=== PATIENT | female | born 1970 | race Caucasian/White ===

== ENCOUNTER 2018-03-08 12:57 | Outpatient (CLI) | payer OTHER ==
--- NOTE | 2018-03-08 16:24 | MMO ---
BILATERAL SCREENING MAMMOGRAMS: Date: 03/08/18 HISTORY: Annual screening mammography. This patient's mammogram was interpreted with the assistance of computer-aided detection. COMPARISON: 03/14/16, 08/22/14, and 07/29/11. FINDINGS: There is a heterogeneously dense parenchymal pattern, which may lower the sensitivity of mammography. There are stable calcifications again seen in each breast. There is an isodense round mass with partially obscured margins seen within the upper outer right burak ast measuring 1.2 cm, not definitively visualized on prior exams. No additional dominant mass or susp icious grouping of microcalcifications are seen in either breast. However, there is a suggested area of architectural distortion within the outer right breast, likely attributable to superimposition of structures. This was appears to be present on prior exams; although, slightly greater increased densi ty is present in this region on the current study. IMPRESSION: BIRADS 0: Incomplete: Need Additional Imaging Evaluation and/or Prior Mammograms for Comparison Spot magnification, compression, CC, and MLO views of right breast, in addition to 90 degree mediolat eral view recommended for further evaluation of the mass in the upper outer right breast and question able area of architectural distortion in the outer right breast only appreciated on the CC projection . Ultrasound examination should also be scheduled if warranted. The facility will notify patient of need for additional imaging services. POS: TAYLOR
== END 2018-03-08 12:58 | disposition home or self-care (01) ==
LOC: SCSMAMMO 12:57
PROVIDERS: ATTEND Family Medicine
DX: Z12.31 Encounter for screening mammogram for malignant neoplasm of breast (principal)
CPT/HCPCS: 77067

== ENCOUNTER 2018-03-19 13:00 | Outpatient (CLI) | payer OTHER ==
--- NOTE | 2018-03-19 17:55 | ULT ---
RIGHT BREAST DIAGNOSTIC ULTRASOUND: Date; 03/19/18 INDICATION: Evaluate upper outer right breast for an isodense rounded mass seen on the patient's screening evalua tion, but appears to have pressed out on the diagnostic right breast mammogram. An additional area of architectural distortion is seen within the right breast 11: position, middle depth. FINDINGS: Within the right breast 11:00 position, 4.0 cm from the nipple, is an area of spiculated increased de nsity. Within the area of increased spiculated echogenicity is a 5.0 mm hypoechoic mass. No suspicious abnormality is seen within the right breast 10:00 position, posterior depth, which lolis esponds to the isodense mass seen on the right breast mammogram that did not persist with additional mammographic images. This is likely related to superimposed breast tissue. Incidental note is made of a 5.0 mm hypodense mass within the right breast 11:30 position, 2.0 cm fro m the nipple. On my evaluation, there was a hilar notch related to this lesion, most consistent with a small lymph node. IMPRESSION: 1. BIRADS Category 4 - suspicious abnormality. Recommend ultrasound guided core biopsy of the area o f architectural distortion right breast, 11:00 position, 4.0 cm from the nipple. This architectural d istortion was likely present on comparison mammograms from 2015, but is much more conspicuous on the current examination paired with the presence of a hypoechoic mass. Malignancy is not excluded. Other differential considerations include entities such as prior trauma and/or potentially radial scar. 2. No suspicious sonographic abnormality seen within the right breast 10:00 position corresponding t o the region of isodense mass-like appearance in the upper outer aspect of the right breast on the sc reening mammogram. This region did not persist with additional mammographic views on today's evaluati on and likely superimposed breast tissue. 3. Incidental lymph node seen within the breast, 11:30 position, 2.0 cm from the nipple. Patient was counseled on the findings prior to leaving the breast center. Findings were called to Dr. Barbosa at approximately 1415 hours on 03/19/18. POS: OFF
== END 2018-03-19 13:01 | disposition home or self-care (01) ==
LOC: BICULT 13:00
PROVIDERS: ATTEND Family Medicine
DX: N63.10 Unspecified lump in the right breast, unspecified quadrant (principal)
CPT/HCPCS: G0279

== ENCOUNTER 2018-03-29 13:22 | Outpatient (CLI) | payer OTHER ==
--- NOTE | 2018-03-29 15:29 | ULT ---
ULTRASOUND GUIDED RIGHT BREAST BIOPSY: Date: 03/29/18 PROVIDED CLINICAL HISTORY: Right breast mass. FINDINGS: Limited sonographic interrogation was performed of the right breast, reidentifying the right breast m ass and associated shadowing. Informed consent was obtained from the patient. The skin overlying the mass was prepped and draped in the usual sterile manner. Soft tissues were infiltrated with 1% buffer ed lidocaine. A small skin incision was made. Under continuous sonographic guidance, a 14 gauge biops y device was advanced adjacent to a lesion and multiple core samples obtained. Subsequently, sonograp hic guidance was utilized to place a biopsy site marker adjacent to the lesion. [place] were withdraw n and hemostasis achieved. No immediate complications. Post biopsy mammograms demonstrate appropriate clip deployment. No immediate complications. IMPRESSION: Technically successful right breast ultrasound guided biopsy. Correlate with histology results to fol low. POS: OFF
== END 2018-03-29 13:23 | disposition home or self-care (01) ==
LOC: BICMAMMO 13:22
PROVIDERS: ATTEND Family Medicine
DX: N63.10 Unspecified lump in the right breast, unspecified quadrant (principal); Z98.890 Other specified postprocedural states
CPT/HCPCS: 19083

== ENCOUNTER → 2018-03-29 | Day surgery (SDC) | payer OTHER | LOC: BICULT 13:43 | PROVIDERS: ATTEND Family Medicine | PROC: 0HBT3ZX Excision of Right Breast, Percutaneous Approach, Diagnostic (ICD-10-PCS; principal; 2018-03-29) | DX: N60.91 Unspecified benign mammary dysplasia of right breast (principal) | CPT/HCPCS: 88305; 88341; 88342 ==

== ENCOUNTER 2018-05-03 05:39 | Outpatient (CLI) | payer OTHER ==
[2018-05-03 09:38] LABS: #Basophils 0.1 thou/uL (0.0-0.2); #Eosinphils 0.2 thou/uL (0.0-0.7); #Lymphocytes 3.8 thou/uL (1.20-3.40); #Monocytes 0.6 thou/uL (0.11-0.59); #Neutrophils 4.7 thou/uL (1.40-6.50); %Eosinophils 2.5 % (0.0-10.0); %Lymphocytes 40.3 % (21.0-51.0); %Neutrophils 50.2 % (42.0-75.0); Hemoglobin 13.1 g/dL (12.0-16.0); Mean Corpuscular HGB CONC 34.6 g/dL (32.0-36.0); Mean Corpuscular Hemoglobin 28.7 pg (27.0-31.0); Mean Corpuscular Volume 82.9 fL (78.0-98.0); Mean Platelet Volume 9.4 fL (7.4-10.4); Platelet Count 218 thou/uL (130-400); RBC Distribution Width 12.3 % (11.5-14.5); Red Blood Cell (RBC) Count 4.55 mill/uL (4.20-5.40); White Blood Cell (WBC) Count 9.3 thou/uL (4.8-10.8)
[2018-05-03 09:57] LABS: Anion Gap 12 mmol/L (10-20); BUN (Urea Nitrogen) 15 mg/dL (7.0-18.7); Calc. Creatinine Clearance 0 mL/min (70-130); Calcium 9.3 mg/dL (7.8-10.44); Carbon Dioxide 23 mmol/L (22-29); Chloride 106 mmol/L (98-107); Estimated GFR-MDRD 82; Glucose 126 mg/dL (70-105); Potassium 3.9 mmol/L (3.5-5.1); Sodium 137 mmol/L (136-145)
== END 2018-05-03 05:40 | disposition home or self-care (01) ==
LOC: LABBT 05:39
PROVIDERS: ATTEND Surgery
DX: Z01.812 Encounter for preprocedural laboratory examination (principal); N63.10 Unspecified lump in the right breast, unspecified quadrant
CPT/HCPCS: 80048; 85025

== ENCOUNTER 2018-05-04 05:57 | Day surgery (SDC) | payer OTHER ==
[2018-05-04] MEDS ORDERED: Midazolam HCl 2 mg/2 ml Vial ONE (07:04)
[2018-05-04] MEDS ORDERED: Fentanyl 100 MCG/2 ML VIAL ONE (07:04)
[2018-05-04] MEDS ORDERED: Bupivacaine/Epinephrine 0.25% 30 ML VIAL ONE (07:41)
--- NOTE | 2018-05-04 09:21 | MMO ---
SPECIMEN RADIOGRAPH: Date: 05/04/18 Needle localization was not performed by the radiology department. There is a single specimen radiogr aph submitted, which demonstrates a surgical specimen. Results conveyed to Dr. Ray on 05/04/18 at 0909 hours. CODE CR. POS: SJ
[2018-05-04] MEDS ORDERED: Ondansetron PF 4 MG/2 ML Vial ONE (12:14)
[2018-05-04] MEDS ORDERED: PROPOFOL 200 MG/20 ML VIAL ONE (12:14)
--- NOTE | 2018-05-11 16:18 | PDOC.OP ---
Operative Note - Operative Note Operative Note: PROCEDURE: Ultrasound-guided needle localization and excision of right breast mass. DATE OF PROCEDURE: 05/04/2018 SURGEON: Farooq Ray M.D. PREOPERATIVE DIAGNOSES: Right breast mass with atypia on core needle biopsy. POSTOPERATIVE DIAGNOSIS: Right breast mass with atypia on core needle biopsy. HISTORY: Patient with suspicious appearing right breast mass with atypia seen on core needle biopsy. Excisional biopsy was recommended due to risk of occult malignancy. PROCEDURE IN DETAIL: After informed consent was obtained the patient was taken to the operating room she was placed in supine position and anesthesia was administered. She was prepped and draped in standard sterile fashion and a sterile ultrasound probe used to identify the hypoechoic mass. A needle localization wire was placed under direct ultrasound guidance into the mass. An incision was made over the mass and dissection carried down to the wire. Flaps were created and the tissues surrounding the end of the wire were dissected free with a 2 cm margin in each direction. During this process the wire did displace, but the mass had already been dissected free almost circumferentially and it was palpable at this point in the dissection. The specimen was completely excised with a generous margin. This was oriented for pathology and sent for specimen mammogram which confirmed presence of the biopsy clip in the specimen. The wound was irrigated and additional local anesthesia infused circumferentially for postoperative pain management. The subcutaneous tissues were reapproximated with 3-0 Monocryl suture and the skin was closed with 0 subcuticular Monocryl suture. Additional local anesthesia was infused into the biopsy cavity and the skin was dressed with Dermabond and fluffs dressing. The patient was extubated and taken to recovery in good condition. Estimated blood loss was minimal. Specimen is right breast mass.
== END 2018-05-04 11:20 | disposition home or self-care (01) ==
LOC: SDC 05:57
PROVIDERS: ATTEND Surgery
PROC: 0HBT0ZZ Excision of Right Breast, Open Approach (ICD-10-PCS; principal; 2018-05-04)
DX: D05.11 Intraductal carcinoma in situ of right breast (principal); E03.9 Hypothyroidism, unspecified; I10 Essential (primary) hypertension; F32.9 Major depressive disorder, single episode, unspecified; E78.5 Hyperlipidemia, unspecified; Z17.0 Estrogen receptor positive status [ER+]; Z79.899 Other long term (current) drug therapy
CPT/HCPCS: 76098; 88307; 88313; 88341; 88342; J2250; J2405; J2704; J3010

== ENCOUNTER 2019-01-18 09:23 | Outpatient (CLI) | payer OTHER ==
--- NOTE | 2019-01-18 10:02 | MMO ---
Bilateral MAMMO Bilat Diag [facility]DI+KATHERINE. CLINICAL HISTORY: Patient is 48 years old and is seen for diagnostic exam. The patient has no family history of breast cancer. 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 The patient has a history of right Lumpectomy in May, - dcis and right Ultrasound Guided Core Biopsy in March, - dcis. VIEWS: The views performed were: bilateral craniocaudal with tomosynthesis; bilateral mediolateral oblique with tomosynthesis; and bilateral mediolateral with tomosynthesis. FILMS COMPARED: The present examination has been compared to prior imaging studies performed at [facility] on 08/22/2014, 03/14/2016 and 03/08/2018, and at [facility] on 03/19/2018. This study has been interpreted with the assistance of computer-aided detection. MAMMOGRAM FINDINGS: The breasts are heterogeneously dense, which could obscure a lesion on mammography. Finding 1: There is an area of architectural distortion and a post-surgical scar seen in the right breast. Finding 2: There are stable benign appearing calcifications seen in the right breast. There are no suspicious masses, suspicious calcifications, or new areas of architectural distortion. IMPRESSION: FINDING 1: AREA OF ARCHITECTURAL DISTORTION AND POST-SURGICAL SCAR IN THE RIGHT BREAST ARE BENIGN. THE FINDINGS AND RECOMMENDATIONS WERE DISCUSSED WITH THE PATIENT PRIOR TO HER LEAVING THE CENTER. FINDING 2: STABLE CALCIFICATIONS IN THE RIGHT BREAST ARE BENIGN. A ROUTINE FOLLOW-UP MAMMOGRAM IN 1 YEAR IS RECOMMENDED. THE RESULTS OF THIS EXAM WERE SENT TO THE PATIENT. ACR BI-RADS Category 2 - Benign finding MAMMOGRAPHY NOTE: 1. A negative mammogram report should not delay a biopsy if a dominant of clinically suspicious mass is present. 2. Approximately 10% to 15% of breast cancers are not detected by mammography. 3. Adenosis and dense breasts may obscure an underlying neoplasm. Reported by: DEQUAN PRATER MD Electonically Signed: [id number]
== END 2019-01-18 09:24 | disposition home or self-care (01) ==
LOC: BICMAMMO 09:23
PROVIDERS: ATTEND Surgery
DX: N63.10 Unspecified lump in the right breast, unspecified quadrant (principal); R92.0 Mammographic microcalcification found on diagnostic imaging of breast; N64.59 Other signs and symptoms in breast; Z98.890 Other specified postprocedural states
CPT/HCPCS: 77066; G0279

== ENCOUNTER 2019-10-27 07:42 | Emergency (ER) | payer OTHER ==
--- NOTE | 2019-10-27 09:05 | RAD ---
LEFT WRIST THREE VIEWS: HISTORY: Injury. FINDINGS: Distal radius and ulna intact. Carpals and visualized metacarpals appear intact. IMPRESSION: No acute abnormality identified. POS: AGW
== END 2019-10-27 08:18 | disposition home or self-care (01) ==
LOC: ERS 07:42
DX: S63.502A Unspecified sprain of left wrist, initial encounter (principal); X50.0XXA Overexertion from strenuous movement or load, initial encounter

== ENCOUNTER 2019-12-04 07:46 | Outpatient (CLI) | payer OTHER ==
--- NOTE | 2019-12-04 08:18 | BD ---
DEXA bone density examination HISTORY: 49-year-old postmenopausal female for screening COMPARISON: None FINDINGS: L1--bone mineral density 0.87 g/sq cm; T score -1.1 L2--bone mineral density 0.897 g/sq cm; T score -1.2 L3--bone mineral density 1.026 g/sq cm; T score -0.5 L4--bone mineral density 0.962 g/sq cm; T score -0.9 Total L1-L4--bone mineral density 0.942 g/sq cm; T score -1.0 Left femoral neck--bone mineral density0.699 g/sq cm; T score -1.3 Total proximal left femur--bone mineral density 1.044 g/sq cm ; T score 0.8 IMPRESSION: 1. Mild osteopenia lumbar spine and left femoral neck. 2. The 10 year major osteoporotic risk fracture is 10% with 10 year hip fracture risk of 0.9%.
== END 2019-12-04 07:47 | disposition home or self-care (01) ==
LOC: BICMAMMO 07:46
PROVIDERS: ATTEND Family Medicine
DX: Z13.820 Encounter for screening for osteoporosis (principal); Z85.89 Personal history of malignant neoplasm of other organs and systems
CPT/HCPCS: 77080

== ENCOUNTER 2020-01-23 13:48 | Outpatient (CLI) | payer OTHER ==
--- NOTE | 2020-01-23 14:26 | MMO ---
Bilateral MAMMO Bilat Diag [facility]DI[facility]KATHERINE. CLINICAL HISTORY: Patient is 49 years old and is seen for diagnostic exam. The patient has no family history of breast cancer. 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 The patient has a history of right Lumpectomy in May, - dcis and right Ultrasound Guided Core Biopsy in March, - dcis. VIEWS: The views performed were: bilateral craniocaudal with tomosynthesis; bilateral mediolateral oblique with tomosynthesis; and bilateral mediolateral with tomosynthesis. FILMS COMPARED: The present examination has been compared to prior imaging studies performed at [facility] on 03/14/2016 and 03/08/2018, and at [facility] on 03/19/2018 and 01/18/2019. This study has been interpreted with the assistance of computer-aided detection. MAMMOGRAM FINDINGS: The breasts are heterogeneously dense, which could obscure a lesion on mammography. Benign calcifications are noted bilaterally. There are stable right post-operative changes. There are no suspicious masses, suspicious calcifications, or new areas of architectural distortion. IMPRESSION: THERE IS NO MAMMOGRAPHIC EVIDENCE OF MALIGNANCY. A ROUTINE FOLLOW-UP MAMMOGRAM IN 1 YEAR IS RECOMMENDED. THE RESULTS OF THIS EXAM WERE SENT TO THE PATIENT. ACR BI-RADS Category 2 - Benign finding MAMMOGRAPHY NOTE: 1. A negative mammogram report should not delay a biopsy if a dominant of clinically suspicious mass is present. 2. Approximately 10% to 15% of breast cancers are not detected by mammography. 3. Adenosis and dense breasts may obscure an underlying neoplasm. Reported by: ANA LILIA PEÑA MD Electonically Signed: [id number]
== END 2020-01-23 13:49 | disposition home or self-care (01) ==
LOC: BICMAMMO 13:48
PROVIDERS: ATTEND Surgery
DX: N63.10 Unspecified lump in the right breast, unspecified quadrant (principal)
CPT/HCPCS: 77066; G0279

== ENCOUNTER 2021-08-06 07:55 | Outpatient (CLI) | payer BC, OTHER | END 2021-08-06 07:56 | disposition home or self-care (01) | LOC: BICMAMMO 07:55 | PROVIDERS: ATTEND Family Medicine | DX: Z13.820 Encounter for screening for osteoporosis (principal); M85.851 Other specified disorders of bone density and structure, right thigh; M85.852 Other specified disorders of bone density and structure, left thigh | CPT/HCPCS: 77080 ==